=== PATIENT | male | born 1975 | race Caucasian/White ===

== ENCOUNTER 2017-06-12 11:37 | Emergency (ER) | payer SELFPAY ==
[~2017-06-12] VITALS: Ht 185.4 cm; Wt 94.3 kg
[~2017-06-12 11:37] MED LIST: BACTRIM,SEPT1 TABLET PO; COLCRYS0.6 MG PO; INDOCIN50 MG PO; KEFLEX500 MG PO; PERCOCET 5/31 TABLET PO
[2017-06-12 11:55] VITALS: BP 195/105
[2017-06-12 12:27] LABS: HEMATOCRIT 42.3 % (38.0-50.0); MCH 29.3 PG (29.0-34.0); MCHC 33.3 G/DL (30.0-36.0); MCV 87.8 FL (86-99); MEAN PLAT.VOLUME 9.8 uM^3 (9.0-12.4); PLATELET COUNT 281 K/uL (156-360); RBC DIS.WIDTH-CV 11.9 % (11.8-14.6); RBC DIS.WIDTH-SD 38.4 % (39-53); RED BLOOD COUNT 4.82 M/uL (4.00-5.50); WHITE BLOOD COUNT 9.1 K/uL (4.1-10.2)
[2017-06-12 12:38] LABS: CHLORIDE 105 mEq/L (99-109); SODIUM 142 mEq/L (136-147)
[2017-06-12 12:40] LABS: GLUCOSE 107 mg/dL (70-99)
[2017-06-12 12:41] LABS: ANION GAP 14 MEQ/L (2-14)
[2017-06-12 12:44] LABS: GFR ESTIMATE (CALCULATED) > 59 mL/min/
[2017-06-12 12:45] LABS: UREA NITROGEN (BUN) 14 mg/dL (9-23)
[2017-06-12] MEDS ORDERED: INDOCIN50 MG PO (12:54)
[2017-06-12] MEDS ORDERED: COLCHICINE0.6 M1 PO (12:54)
== END 2017-06-12 13:14 | disposition home or self-care (01) ==
LOC: EME 11:37
PROVIDERS: Nurse Practitioner Family
DX: M10.9 Gout, unspecified (principal)
CPT/HCPCS: 80048; 84550; 85027; 99281; 99284